=== PATIENT | male | born 1960 | race Caucasian/White ===

== ENCOUNTER 2017-12-27 01:04 | Inpatient (IN) | payer OTHER ==
[2017-12-27] VITALS (8 sets, daily range): BP systolic 91–136; BP diastolic 64–87
[~2017-12-27] VITALS: Ht 175.3 cm; Wt 69.9 kg
[2017-12-27] MEDS ORDERED: LISINOPRIL10 MG PO (01:11)
[2017-12-27] MEDS ORDERED: LYRICA 50 MG50 MG PO (01:11)
[2017-12-27] MEDS ORDERED: CELEXA20 MG PO (01:11)
[2017-12-27 01:35] LABS: ABSOLUTE EOSINOPHILS 0.2 thou/uL (0.0-0.7); ABSOLUTE MONOCYTES 0.6 thou/uL (0.0-1.2); ABSOLUTE NEUTROPHILS 5.1 thou/uL (1.6-8.1); BASOPHILS 0.6 %; EOSINOPHILS 2.5 %; HEMATOCRIT 44.2 % (42.0-52.0); HEMOGLOBIN 15.2 gm/dL (14.0-18.0); LYMPHOCYTES 25.2 %; MCH 31.8 pg (26.0-34.0); MCHC 34.4 g/dL (28.0-37.0); MCV 92.4 fL (80.0-100.0); MPV 8.3 fl. (7.2-11.1); NUCLEATED RBCS 0 /100WBC; PLATELET COUNT* 174 thou/uL (150-400); POLYS 63.7 %; RBC 4.78 mil/uL (4.50-6.00); RDW-CV 12.7 % (10.5-14.5); WBC 8.1 thou/uL (4.0-11.0)
[2017-12-27 01:43] LABS: PROTIME 9.9 Seconds (9.20-11.50)
[2017-12-27 02:20] LABS: CALCIUM 8.9 mg/dL (8.5-10.1); CREATININE 0.9 mg/dL (0.6-1.3); POTASSIUM 4.5 mmol/L (3.5-5.1)
[2017-12-27 02:35] LABS: ALBUMIN 3.6 g/dL (3.4-5.0); TOTAL BILIRUBIN 0.3 mg/dL (<0.1-1.0); TOTAL PROTEIN 6.4 g/dL (6.4-8.2)
--- NOTE | 2017-12-27 05:11 | NUR ---
PT ARRIVED ON UNIT AT 0410 THIS AM ON A BED WITH O2 2 LITER VIA NC ACCOMPANIED BY NURSE. HE STATES THAT HE IS CURRENTLY ON VACATION FROM [place]. HIS BOTHER LIVES HERE AND IS THE PRIMARY CONTACT DURING HIS STAY IN [place]. ALSO STATES THAT HE DOES NOT HAVE ANY CARDIAC ISSUES THAT HE IS AWARE OF, BU FAMILY MEMBER DOES. PT IS ALERT, AWAKE ORIENTED X4, NO COMPLAINT O PAIN. IV LINE IN L FORARM PATENT VTIAL SINS ARE WIHIN NORMAL LIMIT. 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 ADMISSION ASSESSMENT PERFOREMD. REFER TO CHART. ADMISSION HX AND EDUCATION DONE. PT IS A FORMER SMOKER SO SMOKING CESSATION ENCOURAGED. PT STATED UNDERSTANDING. CARDIAC STRIP PRINT OUT. CHART REVIEWED AND SIGNED. SCHEDULED WITH CARDIO CONSULT FOR TODAY. CONSULT WAS CALLED MESSAGE LEFT. PT IS CURRENTLY NPO AWAITNG TO SEE CADIAC . PT DOES NOT STATE ANY CONCERN AT THIS TIME, HE JUST WOULD LIKE TO KNOW THE CAUSE OF HIS CHEST PAIN. SCDS ARE ON, CALL LIGHT AT EACH, WILL CONTINUE TO MONITOR.
[2017-12-27 09:37] LABS: CHOLESTEROL 132 mg/dL (<200); HDL CHOLESTEROL 53 mg/dL (>40); LDL CHOLESTEROL 59 mg/dL (<100); SERUM ASSESSMENT Clear; TC:HDL 2.5 Ratio (Not establshd); TRIGLYCERIDE 103 mg/dL (<150); VLDL 21 mg/dL (<40)
--- NOTE | 2017-12-27 10:20 | NUR ---
CM ASSESSMENT: Pt is A&O. Resides at home with family in [place], here on vacation. Independent with ADLs. No DME. No hx of HH or SNF. Supportive family. Goal is to return home once medically stable. Cardiolgy following, planned echo and stress test today.
--- NOTE | 2017-12-27 15:18 | 2DMMODE ---
[place] [address] 2 D/M-MODE ECHOCARDIOGRAM Name: DIEUDONNE JOHNSON Room: [address] IN [facility]#: [id number] Admission: 12/27/17 Attend Phys: Jaison Hernandez Discharge: Date of : 58 Date of Service: 12/27/17 1518 Report #: [id number] THIS REPORT FOR: //name// APPROVED REPORT Study performed: 12/27/2017 10:13:38 EXAM: Comprehensive 2D, Doppler, and color-flow Echocardiogram Patient Location: In-Patient Room #: 200 Status: routine BSA: 1.87 HR: 61 bpm BP: 116/64 mmHg Rhythm: NSR Other Information Study Quality: Good Indications Chest Pain 2D Dimensions LVEF(%): 70.95 (>50%) IVSd: 9.37 (7-11mm) LVOT Diam: 21.37 (18-24mm) LVDd: 45.68 mm PWd: 9.90 (7-11mm) Ascending Ao: 35.96 (22-36mm) LVDs: 27.32 (25-40mm) Aortic Root: 33.45 mm Hdz's LVEF: 70.95 % Volumes Left Atrial Volume (Systole) LA ESV Index: 25.90 mL/m2 Aortic Valve AoV Peak Aniceto.: 1.44 m/s AO Peak Gr.: 8.25 mmHg LVOT Max P.56 mmHg AO Mean Gr.: 4.05 mmHg LVOT Mean P.08 mmHg LVOT Max V: 1.28 m/s AO V2 VTI: 26.36 cm LVOT Mean V: 0.80 m/s JOSSUE (VTI): 3.62 cm2 LVOT V1 VTI: 26.59 cm Mitral Valve E/A Ratio: 1.14 [place] [address] 2 D/M-MODE ECHOCARDIOGRAM Name: DIEUDONNE JOHNSON Room: [address] IN .R.#: [id number] Admission: 12/27/17 Attend Phys: Jaison Hernandez Discharge: Date of : 58 Date of Service: 12/27/17 1518 Report #: [id number] MV Decel. Time: 167.13 ms MV E Max Aniceto.: 0.85 m/s MV PHT: 48.47 ms MVA (PHT): 4.54 cm2 TDI E/Lateral E': 6.54 E/Medial E': 5.67 Medial E' Aniceto.: 0.15 m/s Lateral E' Aniceto.: 0.13 m/s Pulmonary Valve PV Peak Aniceto.: 1.13 m/s PV Peak Gr.: 5.09 mmHg Tricuspid Valve TR Peak Gr.: 27.88 mmHg RVSP: 32.00 mmHg Left Ventricle The left ventricle is normal size. There is normal LV segmental wall motion. There is normal left ventricular wall thickness. Left ventricular systolic function is normal. The left ventricular ejection fraction is within the normal range. LVEF is 60-65%. The left ventricular diastolic function is normal. Right Ventricle The right ventricle is normal size. The right ventricular systolic function is normal. Atria The left atrium size is normal. The right atrium size is normal. Aortic Valve The aortic valve is normal in structure. No aortic regurgitation is present. There is no aortic valvular stenosis. Mitral Valve The mitral valve is normal in structure. Mild mitral regurgitation. No evidence of mitral valve stenosis. Tricuspid Valve The tricuspid valve is normal in structure. Trace tricuspid regurgitation. The RVSP is 30-35 mmHg. Pulmonic Valve The pulmonary valve is normal in structure. There is no pulmonic [place] [address] 2 D/M-MODE ECHOCARDIOGRAM Name: DIEUDONNE JOHNSON Room: [address] IN [facility]#: [id number] Admission: 12/27/17 Attend Phys: Jaison Hernandez Discharge: Date of : 58 Date of Service: 12/27/17 1518 Report #: [id number] Great Vessels The aortic root is normal in size. IVC is normal in size and collapses with >50% inspiration Pericardium There is no pericardial effusion. <Conclusion> The left ventricle is normal size. There is normal left ventricular wall thickness. Left ventricular systolic function is normal. The left ventricular ejection fraction is within the normal range. LVEF is 60-65%. The left ventricular diastolic function is normal. The right ventricle is normal size. The left atrium size is normal. The aortic valve is normal in structure. The mitral valve is normal in structure. Mild mitral regurgitation. The tricuspid valve is normal in structure. Trace tricuspid regurgitation. The RVSP is 30-35 mmHg. IVC is normal in size and collapses with >50% inspiration There is no pericardial effusion. There is normal LV segmental wall motion. <ELECTRONICALLY SIGNED> By: Cortez Ferrer MD, FACC 12/27/17 1518 1518 1518 Cortez Ferrer MD, FACC /INF
--- NOTE | 2017-12-27 16:07 | EKG ---
[place] [address] ELECTROCARDIOGRAM REPORT Name: DIEUDONNE JOHNSON Room: [address] ADM IN [facility].#: [id number] Admission: 12/27/17 Attend Phys: Renita Mitchell Discharge: Date of : 58 Report #: [id number] THIS REPORT FOR: //name// [facility] ED Test Date: 2017-12-27 Test Time: 01:07:06 Pat Name: DIEUDONNE JOHNSON Department: Room: [facility] Gender: Section Housekeeper: KAMRAN Polk : 1960 Requested By: Ly Eldridge Order Number: [id number] MD: Cortez Ferrer Measurements Intervals Hurley Rate: 62 P: 77 AR: 146 QRS: 48 QRSD: 89 T: 40 QT: 393 QTc: 399 Interpretive Statements Sinus rhythm Normal ekg No previous ECG available for comparison Electronically Signed On 12-27-2017 16:07:13 CDT by Cortez Ferrer [email or web address] <ELECTRONICALLY SIGNED> By: Cortez Ferrer MD, [facility] 12/27/17 1607 0107 6 Cortez Ferrer MD, FACC /EPI
--- NOTE | 2017-12-27 19:14 | NUR ---
ASSUMED CARE OF PT AT 0715. PT CONTINUES TO BE A&O 4 CALM AND COOPERATIVE. PT DENIES ANY C/O DISTRESS AND HAS NOT HAD ANY C/OPAIN SINCE THIS MORNING. PT WENT FOR A NUCLEAR STRESS TEST TODAY AND WILL COMPLETE THE REST OF THE TEST TOMORROW. PT CURRENTLY RESTING IN BED WITH FAMILY AT [facility], NURSING WILL CONTINUE TO MONITOR.
[2017-12-28] VITALS: BP 112/68
[2017-12-28 04:00] VITALS: BP 110/74
--- NOTE | 2017-12-28 05:14 | NUR ---
END SHIFT: PT RESTED WELL. NO COMPLAINTS. NO PAIN. REMAINED SR/SB ON MONITOR. ASSESSMENT UNCHANGED. VSS. SAFETY PRECAUTIONS IN PLACE. CALL LIGHT IN REACH. WILL CONT TO MONITOR.
[2017-12-28 08:00] VITALS: BP 110/92
[2017-12-28 08:53] VITALS: BP 110/92
--- NOTE | 2017-12-28 09:03 | CARDNUC ---
[place] [address] CARDIAC NUCLEAR IMAGING REPORT Name: DIEUDONNE JOHNSON Room: [address] IN [facility]#: [id number] Admission: 12/27/17 Attend Phys: Jaison Hernandez Discharge: Date of : 58 Date of Service: 12/28/17 0903 Report #: [id number] THIS REPORT FOR: //name// APPROVED REPORT Study performed: 12/27/2017 08:49:00 Exam: Nuclear Stress Test Indication: chest pain, dyspnea Patient Location: In-Patient Room #: 200 Stress Tech: Jenny Casarez Stress Nurse: Veronica Rowe RN Ht: 5 ft 9 in Wt: 158 lbs BSA: 1.87 m2 BMI: 23.32 Medical History Medical History: copd hx tia Medications: lisinopril Allergies: nkda Cardiac Risk Factors: age, hypertension, tobacco, family hx Previous Cardiac Procedures: none Exercise History: Physically active Stress Test Details Stress Test: Exercise stress testing was performed using a Elijah protocol. HR Resting HR: 67 bpm Max Heart Rate (APMHR): 162 bpm Max HR Achieved: 145 bpm Target HR (85% APMHR): 137 bpm % of APMHR: 89 Recovery HR: 89 bpm HR response to stress: Normal HR response to stress BP Resting BP: 136/81 mmHg Max BP: 175/80 mmHg BP response to stress: Normal blood pressure response to stress. ECG Resting ECG: Sinus Rhythm, normal EKG Stress ECG: Sinus Tachycardia ST Change: [place] [address] CARDIAC NUCLEAR IMAGING REPORT Name: DIEUDONNE JOHNSON Room: [address]#: [id number] Admission: 12/27/17 Attend Phys: Jaison Hernandez Discharge: Date of : 58 Date of Service: 12/28/17 0903 Report #: [id number] Arrhythmia: None Recovery ECG: Sinus Rhythm, normal EKG Recovery ST Change: None Recovery Arrhythmia: None Clinical Reason for Termination: Fatigue, Dyspnea Stress Symptoms: soa Exercise duration: 8 min 4 sec Exercise capacity: 10.16 METs Functional Aerobic Impairment 90% The patient had no significant symptoms with standard Elijah protocol exercise. Stress ECG Conclusion The baseline 12-lead electrocardiogram showed normal sinus rhythm without significant ST or T wave abnormality. EKGs obtained during and after stress showed sinus rhythm and sinus tachycardia with no significant ST or T wave abnormalities when compared to baseline. There were no stress-induced arrhythmias. NM EXAM: Myocardial Perfusion REST/STRESS Imaging Protocol: Rest Tc-99m/Stress Tc-99m 1 day Resting Data Rest SPECT myocardial perfusion imaging was performed in supine position 50 minutes following the intravenous injection of 12.0 mCi of Tc-99m Sestamibi. Time of rest injection: 1350 Time of rest imagin The images were gated to evaluate regional wall motion and calculate left ventricular ejection fraction. Administration Route: IV Administration Site: Left AC Exercise Stress At peak stress, the patient was injected intravenously with 33.6mCi of Tc-99m Sestamibi. Time of stress injection: 1540 Time of stress imagin Administration Route: IV Administration Site: Left AC Heart Rate at time of stress injection: 145 bpm. Gated Stress SPECT was performed 30 minutes after stress injection. The images were gated to evaluate regional [place] [address] CARDIAC NUCLEAR IMAGING REPORT Name: DIEUDONNE JOHNSON Room: [address] IN [facility]#: [id number] Admission: 12/27/17 Attend Phys: Jaison Hernandez Discharge: Date of : 58 Date of Service: 12/28/17 0903 Report #: [id number] left ventricular ejection fraction. Prone imaging was performed. Study Quality Study: Good Artifact: No artifact Study Data At rest, the left ventricular ejection fraction was 74%.. Post stress, the left ventricular ejection was 72%.. TID = 0.88. Perfusion Normal left ventricular perfusion. Wall Motion Normal left ventricular wall motion. Nuclear Conclusion ECG Findings: negative for ischemia Clinical Findings: negative for ischemia Nuclear Findings: negative for ischemia Exercise Capacity: normal Left Ventricular Function: normal Risk Study: low Myocardial perfusion images at rest and post stress show uniform uptake of the radioisotope throughout the myocardium without defect. There were no defects to suggest infarct or ischemia. Left ventricular systolic function was normal on gated studies. This is a low risk study. <Conclusion> The baseline 12-lead electrocardiogram showed normal sinus rhythm without significant ST or T wave abnormality. EKGs obtained during and after stress showed sinus rhythm and sinus tachycardia with no significant ST or T wave abnormalities when compared to baseline. There were no stress-induced arrhythmias. <ELECTRONICALLY SIGNED> By: Ryder Card MD, FACC 12/28/17902 2 2 Ryder Card MD, FACC /INF
[2017-12-28 09:08] VITALS: BP 110/92
--- NOTE | 2017-12-28 09:37 | NUR ---
PT STATES HE WANTS TO LEAVE. STRESS TEST NEGATIVE PER CARDIOLOGY. PT EAGER TO LEAVE. INFORMED AWAITING DC BY PRIMARY
== END 2017-12-28 10:10 | disposition home or self-care (01) | DRG 313 ==
LOC: M.ERS 01:04 → M.2W 02:49 → M.TBA-ER 02:49 → M.2W 03:41
PROVIDERS: Emergency Medicine; Nurse Practitioner Family; ADMIT Internal Medicine
PROC: B24BZZ4 Ultrasonography of Heart with Aorta, Transesophageal (ICD-10-PCS; principal; 2017-12-27)
DX: R07.89 Other chest pain (principal); I10 Essential (primary) hypertension; J44.9 Chronic obstructive pulmonary disease, unspecified; F17.210 Nicotine dependence, cigarettes, uncomplicated; Z71.6 Tobacco abuse counseling; Z79.899 Other long term (current) drug therapy; Z82.49 Family history of ischemic heart disease and other diseases of the circulatory system